=== PATIENT | female | born 1945 | race American Indian/Alaskan Native ===

== ENCOUNTER 2017-02-12 09:10 | Day surgery (SDC) | payer MEDICARE ==
[2017-02-04 14:45] VITALS: BMI 34.0
[2017-02-12] MEDS ORDERED: Propofol 10 mg/ml Inj (20 ML) ONE (12:06)
[2017-02-12] MEDS ORDERED: Lactated Ringer's 1,000 ML IV SCH (12:45)
[2017-02-12 16:49] VITALS: BP 121/72; PULSE 65; RESP 14; TEMP 98.2; O2SAT 100
== END 2017-02-12 14:25 | disposition home or self-care (01) ==
LOC: ENDO 09:10
PROVIDERS: ATTEND Internal Medicine Gastroenterology
DX: Z12.11 Encounter for screening for malignant neoplasm of colon (principal); K63.5 Polyp of colon; K57.30 Diverticulosis of large intestine without perforation or abscess without bleeding; K64.8 Other hemorrhoids; Z85.3 Personal history of malignant neoplasm of breast
CPT/HCPCS: 45390; 88305; J2704; J7040; J7120

== ENCOUNTER 2018-12-20 09:22 | Outpatient (CLI) | payer MEDICARE | END 2018-12-20 09:23 | disposition home or self-care (01) | LOC: RAD 09:23 ==

== ENCOUNTER 2019-02-07 09:33 | Outpatient (CLI) | payer MEDICARE | END 2019-02-07 09:34 | disposition home or self-care (01) | LOC: RAD 09:33 | DX: M81.0 Age-related osteoporosis without current pathological fracture (principal) ==